=== PATIENT | male | born 1980 | race Caucasian/White ===

== ENCOUNTER 2017-10-03 16:14 | Emergency (ER) | payer OTHER ==
[~2017-10-03] VITALS: Ht 175.3 cm; Wt 74.0 kg
[~2017-10-03 16:14] MED LIST: MUPI22OI30 TP; NO HOME MEDS
[2017-10-03 16:55] LABS: BASOPHILS % (AUTO) 0.2 % (0-1); EOSINOPHILS # (AUTO) 0.2 X10'3 (0-0.9); EOSINOPHILS % (AUTO) 3.7 % (0-6); HEMOGLOBIN 15.1 g/dl (14.0-17.9); LYMPHOCYTES % (AUTO) 16.5 % (21-51); MEAN CORPUSCULAR HEMOGLOBIN 28.6 PG (27.0-31.0); MEAN CORPUSCULAR HGB CONC 32.9 % (33.0-36.5); MEAN CORPUSCULAR VOLUME 86.9 FL (78-98); MEAN PLATELET VOLUME 7.9 FL (7.4-10.4); MONOCYTES # (AUTO) 0.4 X10'3 (0-0.9); NEUTROPHILS # (AUTO) 4.4 X10'3 (1.8-7.7); NEUTROPHILS % (AUTO) 73.6 % (42-75); PLATELET COUNT 341 X10'3 (140-440); RED CELL DISTRIBUTION WIDTH 13.7 % (11.5-14.5)
[2017-10-03 17:07] LABS: INR 0.9 INR; PARTIAL THROMBOPLASTIN TIME 29 SECONDS (22-32); PROTHROMBIN TIME 9.8 SECONDS (9.0-12.0)
[2017-10-03] MEDS ORDERED: CYCL-1 PO (17:13)
[2017-10-03] MEDS ORDERED: PANT-47 PO (17:13)
[2017-10-03] MEDS ORDERED: IBUP-1984 PO (17:13)
[2017-10-03] MEDS ORDERED: ketorolac trometh inj. 60 MG/2 ML VIAL IM ONE (17:15)
[2017-10-03 17:21] LABS: ALANINE AMINOTRANSFERASE 85 U/L (12-78); ALBUMIN/GLOBULIN RATIO 1.2 (1.1-1.5); ALKALINE PHOSPHATASE 81 IU/L (46-116); ANION GAP 6 (8-16); ASPARTATE AMINO TRANSFERASE 36 U/L (10-37); BILIRUBIN,TOTAL 0.4 MG/DL (0.1-1.0); BLOOD UREA NITROGEN 13 MG/DL (7-18); CALCIUM 9.3 MG/DL (8.5-10.1); CHLORIDE 103 MMOL/L (99-107); GLUCOSE 118 MG/DL (70-104); POTASSIUM 4.3 MMOL/L (3.5-5.1); SODIUM 144 MMOL/L (135-145); TOTAL CARBON DIOXIDE 34.8 MMOL/L (24-32); TOTAL PROTEIN 7.4 G/DL (6.4-8.2); eGFR 61 ML/MIN
[2017-10-03 17:32] VITALS: BP 146/86
== END 2017-10-03 17:33 | disposition home or self-care (01) ==
LOC: ER 16:15
DX: S16.1XXA Strain of muscle, fascia and tendon at neck level, initial encounter (principal); M94.0 Chondrocostal junction syndrome [Tietze]; M54.12 Radiculopathy, cervical region; F15.10 Other stimulant abuse, uncomplicated; F12.10 Cannabis abuse, uncomplicated; Z87.891 Personal history of nicotine dependence; Z90.89 Acquired absence of other organs; X58.XXXA Exposure to other specified factors, initial encounter; Y93.89 Activity, other specified; Y92.89 Other specified places as the place of occurrence of the external cause; Y99.9 Unspecified external cause status
CPT/HCPCS: 36415; 71045; 80053; 84484; 85025; 85610; 85730; 93005; 96372; 99285; J1885

== ENCOUNTER 2020-07-26 14:33 | Emergency (ER) | payer SELFPAY ==
[~2020-07-26 14:33] MED LIST changes: +CYCL-1 PO; +PANT-47 PO
== END 2020-07-26 16:28 | disposition left against medical advice (07) ==
LOC: ER 14:33
DX: B08.4 Enteroviral vesicular stomatitis with exanthem (principal); Z53.21 Procedure and treatment not carried out due to patient leaving prior to being seen by health care provider

== ENCOUNTER 2022-02-20 01:57 | Emergency (ER) | payer OTHER ==
[~2022-02-20] VITALS: Ht 175.3 cm; Wt 68.1 kg
[2022-02-20 05:24] VITALS: BP 134/87
[2022-02-20] MEDS ORDERED: CLIN300C54 PO (05:26)
[2022-02-20] MEDS ORDERED: clindamycin 150mg capsule PO ONE (05:30)
== END 2022-02-20 05:50 | disposition home or self-care (01) ==
LOC: ER 01:58
DX: L03.115 Cellulitis of right lower limb (principal); F12.90 Cannabis use, unspecified, uncomplicated; Z60.2 Problems related to living alone; Z72.89 Other problems related to lifestyle; Z79.899 Other long term (current) drug therapy
CPT/HCPCS: 99283

== ENCOUNTER 2023-12-22 19:57 | Emergency (ER) | payer OTHER ==
[~2023-12-22] VITALS: Ht 175.3 cm; Wt 70.5 kg
[2023-12-22 20:14] VITALS: BP 138/84; PULSE 99; RESP 13; TEMP 98.5; O2SAT 98
== END 2023-12-23 02:56 | disposition left against medical advice (07) ==
LOC: ER 19:58
DX: M25.511 Pain in right shoulder (principal); Z53.21 Procedure and treatment not carried out due to patient leaving prior to being seen by health care provider
CPT/HCPCS: 73030; 99281

== ENCOUNTER 2025-05-26 16:29 | Emergency (ER) | payer SELFPAY ==
[~2025-05-26] VITALS: Ht 175.3 cm; Wt 87.5 kg
--- NOTE | 2025-05-26 16:55 | Physician Documentation ---
History of Present Illness ~ Chief Complaint: Ingestion Error Stated Complaint: INGESTION OF DESCALER Time Seen by MD: 20:52 Primary Medical Doctor: none HPI This is a 44-year-old male who presents approximately 12 hours after an accidental ingestion of a "gulp" of de-scaling fluid. Patient reports vomiting immediately after ingestion. Patient reports feeling feverish and chills for the course of the day and very tired. She reports that his posterior oropharynx gonzalez and he feels like he needs to cough something up but nothing has come up. Patient denies any airway difficulty or shortness of breath at this time. Medication Reconciliation Allergies: Coded Allergies: No Known Allergies (Unverified , 10/03/17) Scheduled Mupirocin* (Bactroban*), 1 APPLIC TP BID Pantoprazole Sodium (PROTONIX tablet), 40 MG PO QAM Scheduled PRN Cyclobenzaprine* (Cyclobenzaprine*), 1 TABLET PO Q8H PRN for muscle spasms Miscellaneous Medications Home Med List (No Home Medications), (Reported) Past Medical History Past Medical History: No Pertinent History Past Surgical History: tonsillectomy Alcohol Use: Occasionally Drug Use: marijuana, methamphetamine Lives with: Alone Lives In: Home Occupation: employed Review of Systems ROS As stated above in the HPI, otherwise all systems are reviewed and negative. Physical Exam Vital Signs: Temperature: 97.8, Source: Temporal, Heart Rate: 96, Respiratory Rate: 18, BP: 135/112, Pulse Oximetry: 99, Weight: 87.500 Oxygen Flow Rate: 0 Physical Exam General: Patient is awake, alert, oriented x4 in no acute distress Head: Normocephalic and atraumatic. Eyes: Conjunctival normal. EOMI. PERRL. ENT: Mucous membranes moist. Patient maintaining secretions. No hot potato v oice. Ulcerations noted in posterior pharynx Neck: Supple, trachea is midline. Chest: Clear to auscultation bilaterally without rales, rhonchi, or wheezes. There is no accessory muscle use or retractions. Cardiac: RRR without murmurs, gallops, or rubs. Progress Progress Note Spoke with any ENT at [facility] I believe patient requires a tertiary care facility that has that has likely some circumferential gonzalez in his esophagus. Results/Orders Results/Orders Orders - RAGHU PARNELL MD Urinalysis, Cult If Indicated (05/27/25 02:36) Drug Screen, Urine (05/27/25 02:36) Medications Received in ER Medications (Trade) Dose Ordered Sig/Emmanuel Route PRN Reason Start Time Stop Time Status Last Admin Dose Admin (Decadron 10mg/ ml inj) 10 mg ONCE STAT IV 05/26/25 21:38 05/26/25 21:39 DC 05/26/25 21:51 10 MG Vital Signs 05/26/25 05/26/25 05/27/25 16:43 21:59 02:08 Temp 97.8 98.2 Pulse 96 96 99 Resp 18 18 18 B/P (MAP) 135/112 135/92 (106) 174/94 (120) Pulse Ox 99 99 99 O2 Flow Rate 0 Laboratory Tests Test 05/26/25 21:48 White Blood Count 9.6 Red Blood Count 5.31 Hemoglobin 15.4 Hematocrit 45.1 Mean Corpuscular Volume 85.1 Mean Corpuscular Hemoglobin 29.0 Mean Corpuscular Hemoglobin Concent 34.2 Red Cell Distribution Width 13.7 Platelet Count 345 Mean Platelet Volume 8.3 Neutrophils (%) (Auto) 68.4 Lymphocytes (%) (Auto) 15.7 L Monocytes (%) (Auto) 6.9 Eosinophils (%) (Auto) 8.2 H Basophils (%) (Auto) 0.8 Neutrophils # (Auto) 6.5 Lymphocytes # (Auto) 1.5 Monocytes # (Auto) 0.7 Eosinophils # (Auto) 0.8 Basophils # (Auto) 0.1 CBC Comment Sodium Level 138 Potassium Level 3.5 Chloride Level 99 Carbon Dioxide Level 27.9 Anion Gap 11 Blood Urea Nitrogen 16 Creatinine 0.86 Estimated GFR/1.73 m2 > 90 BUN/Creatinine Ratio 18.6 Glucose Level 90 Calcium Level 8.8 Total Bilirubin 0.8 Aspartate Amino Transf (AST/SGOT) 42 H Alanine Aminotransferase (ALT/SGPT) 69 Alkaline Phosphatase 104 Total Protein 7.2 Albumin 3.6 Globulin 3.6 Albumin/Globulin Ratio 1.0 L Chemistry Comments Medical Decision Making Findings MSE performed in triage and patient returned to ED lobby by nursing staff to await available ED room 44 y/o patient ingested an alkaline substance approximately 12 hours ago. The substance is a hot tub the business continuity strategy director called Baquacil. Patient is non-toxic appearing. Patient's airway is patent. No concern for airway compromise at this time. We will continue to evaluate. Core temperature is normal. No evidence of tachycardia, bradycardia, tachypnea or bradypnea. Pupils are normal in size. Skin is normal; not dry or diaphoretic. No evidence of lethargy, or agitation. Bowel sounds are normal. Poison control contacted. Patient control reports that the patient needs ENT for endoscopy for further evaluation. Patient given dexamethasone laboratory diagnostics performed. Patient was admitted for further observation and ENT services. This is case with my attending. Have placed a call with [facility] for ENT transfer. [facility] do not currently have beds and are unable to accept this patient this time. Has place a call with [facility]. Awaiting return call at this time. Dr. Parnell receiving care of patient. Reviewed history and I have seen patient and examined patient. Patient remains in no acute distress. I have discussed case with physician at [facility] who graciously agrees to transfer as patient requires ENT services for which we do not have. Differential Dx:Considerations: Include: Alcohol abuse, Anxiety, Bipolar disorder, Conversion disorder, Delirium, Depression, Drug Overdose-Accidental, Drug Overdose-Intentional, Encephalopathy, Hallucinations, Homicidal, Liver failure, Panic disorder, Personality disorder, Renal failure, Respiratory failure, Schizophrenia, Substance abuse, Suicidal attempt, Suidical gesture, Other Departure Disposition: 51 HOSPICE/MEDICAL FACILITY Impression: Primary Impression: Ingestion of caustic substance Condition: Guarded Additional Instructions: 44 y/o patient ingested an alkaline substance approximately 12 hours ago. The substance is a hot tub the business continuity strategy director called Baquacil. Patient is non-toxic appearing. Patient's airway is patent. No concern for airway compromise at this time. We will continue to evaluate. Core temperature is normal. No evidence of tachycardia, bradycardia, tachypnea or bradypnea. Pupils are normal in size. Skin is normal; not dry or diaphoretic. No evidence of lethargy, or agitation. Bowel sounds are normal. Poison control contacted. Patient control reports that the patient needs ENT for endoscopy for further evaluation. Patient given dexamethasone laboratory diagnostics performed. Patient was admitted for further observation and ENT services. This is case with my attending. Have placed a call with [facility] for ENT transfer. [facility] and are unable to accept this patient this time. Has place a call with [facility]. Awaiting return call at this time. Referrals: NO PRIMARY CARE PROVIDER (PCP) Education Educated: Patient Educated regarding: diagnosis, treatment, need for follow up Critical Care Note Total Time (mins): 45 Critical Care Note The very real possibility of a deterioration of this patient's condition required the highest level of my preparedness for sudden, emergent intervention. I provided critical care services, which included medication orders, frequent reevaluations of the patient's condition and response to treatment, ordering and reviewing test results, and discussing the case with various consultants. Excludes time spent performing separately billable procedures. The critical care time associated with the care of the patient was 45 minutes not counting procedures Signature Scribe Signature: A Attestation: The note accurately reflects work and decisions made by me.Raghu Parnell MD 05/27/25 04:03 Scribed for Lakshmi Parisp by NATALY Ugalde . 05/27/25 00:16 SHALA KEYS May 26, 2025 16:55 LAKSHMI PARIS May 27, 2025 00:12 RAGHU PARNELL MD May 27, 2025 02:35
[2025-05-26] MEDS: dexamethasone sod phosphate 10mg/ml inj IV STA (21:51)
[2025-05-26 22:06] LABS: MEAN PLATELET VOLUME 8.3 FL (7.4-10.4); RED CELL DISTRIBUTION WIDTH 13.7 % (11.5-14.5)
[2025-05-26 22:18] LABS: CREATININE 0.86 MG/DL (0.60-1.10); TOTAL CARBON DIOXIDE 27.9 MMOL/L (24-32); eCRCL 107 ML/MIN; eGFR > 90 ML/MIN
[2025-05-26] MEDS ORDERED: iohexol 300mg/ml 100ml inj. ONE (22:52)
--- NOTE | 2025-05-26 23:45 | RADIOLOGY REPORT ---
Accession Number: [id number] Clinical History: eval for alkaline ingestion injuries Comparison: None Technique: After the intravenous administration of intravenous contrast, multi- slice CT scan of the neck was performed without complication. Radiation Dose Information: CT Dose: CTDI volume is 14.79 mGy. Dose-length product is 464.93 mGy*cm Findings: There is suspected wall thickening within the visualized portions of the upper esophagus, with internal debris. No definite perforation is seen. The nasopharynx, oropharynx, hypopharynx, esophagus, and larynx demonstrate normal patency and contour without evidence of a soft tissue mass at this time. Bilaterally, the parotid, submandibular, and sublingual glands are normal in their size, shape, and attenuation without evidence of calcification. Evaluation of the lateral spaces of the neck demonstrates no obvious masses or significant lymphadenopathy. The thyroid gland is normal in size, shape, and attenuation without evidence of calcification. After the administration of contrast, no focal areas of abnormal enhancement are demonstrated. Impression: 1. Suspected wall thickening within the upper portions of the esophagus, with internal debris. Further clinical correlation is suggested and if clinically indicated, endoscopy may be beneficial in further assessment.
[2025-05-27] MEDS: normal saline 1000ml 1,000 ML IV ONE (04:59)
[2025-05-27 05:01] LABS: LEUKOCYTE ESTERASE ,URINE NEGATIVE (Neg); NITRITES, URINE NEGATIVE (Neg); OCCULT BLOOD,URINE NEGATIVE (Neg)
[2025-05-27 05:03] LABS: UA COLLECTION TYPE NON-SPECIFIED
[2025-05-27 05:13] LABS: URINE AMPHETAMINE SCREEN POSITIVE (Neg); URINE BARBITUATE SCREEN NEGATIVE (Neg); URINE BENZODIAZEPINES SCREEN NEGATIVE (Neg); URINE CANNABINOID SCREEN NEGATIVE (Neg); URINE COCAINE SCREEN NEGATIVE (Neg); URINE METHADONE SCREEN NEGATIVE (Neg); URINE OPIATE SCREEN NEGATIVE (Neg); URINE PHENCYCLIDINE SCREEN NEGATIVE (Neg)
[2025-05-27 09:50] VITALS: BP 140/68; PULSE 70; RESP 16; TEMP 98.2; O2SAT 99
== END 2025-05-27 09:53 | disposition hospice, inpatient (51) ==
LOC: ER 16:30
DX: T54.91XA Toxic effect of unspecified corrosive substance, accidental (unintentional), initial encounter (principal); F12.90 Cannabis use, unspecified, uncomplicated; F15.90 Other stimulant use, unspecified, uncomplicated; Z90.89 Acquired absence of other organs; Z79.899 Other long term (current) drug therapy; Y92.89 Other specified places as the place of occurrence of the external cause
CPT/HCPCS: 36415; 70491; 80053; 80305; 81003; 85025; 96361; 96374; 99291; J1100; J7030; Q9967